=== PATIENT | female | born 1960 | race Caucasian/White ===

== ENCOUNTER 2017-01-06 21:44 | Emergency (ER) | payer BC, OTHER ==
[~2017-01-06 21:44] MED LIST: ALLEGRA ALLERG180 MG; ALLOPURINOL300 MG; CARVEDILOL25 MG; FELODIPINE ER2.5 MG; KEFLEX500 M2 PO; LASIX20 MG; LISINOPRIL PO; LOPRESSOR PO; MAXZIDE 75/50 T1 TAB PO; OMEPRAZOLE20 M1; PLENDIL PO; PRINIVIL5 MG; SINGULAIR; VITAL-D RX TABL1 TAB
== END 2017-01-06 22:47 | disposition home or self-care (01) ==
LOC: SED 21:44
DX: R04.0 Epistaxis (principal); I10 Essential (primary) hypertension
CPT/HCPCS: 30901; 99283